=== PATIENT | female | born 1965 | race Caucasian/White ===

== ENCOUNTER → 2016-06-16 | Outpatient (CLI) | payer OTHER ==
[~2016-06-16] MED LIST: BUTA1TAB40 PO; DEXL60CA PO; LEVA15HF2 INH; MECL12.5 PO
== END | disposition home or self-care (01) ==
LOC: CFH 07:30
PROVIDERS: ATTEND Internal Medicine
DX: I08.1 Rheumatic disorders of both mitral and tricuspid valves (principal); I37.1 Nonrheumatic pulmonary valve insufficiency
CPT/HCPCS: 93306

== ENCOUNTER → 2016-06-20 | Outpatient (CLI) | payer OTHER | END | disposition home or self-care (01) | LOC: CFH 15:32 | PROVIDERS: ATTEND Internal Medicine | DX: R22.31 Localized swelling, mass and lump, right upper limb (principal) ==

== ENCOUNTER → 2017-03-08 | Outpatient (CLI) | payer OTHER ==
[~2017-03-08] MED LIST changes: -DEXL60CA PO; +DEXL60CA2 PO; -LEVA15HF2 INH; +LEVA15HF4 INH
== END | disposition home or self-care (01) ==
LOC: CFH 15:30
PROVIDERS: ATTEND Student in an Organized Health Care Education/Training Program
DX: M50.223 Other cervical disc displacement at C6-C7 level (principal)
CPT/HCPCS: 72141

== ENCOUNTER 2019-09-21 10:19 | Emergency (ER) | payer OTHER ==
[~2019-09-21] VITALS: Ht 167.6 cm; Wt 98.2 kg
--- NOTE | 2019-09-21 10:55 | NUR ---
PT AMBULATORY TO ROOM 4 W/ C/O POSTERIOR HEAD VS MARBLE COUNTERTOP. STATES SHE WAS CLEANING THE TOILET AND SHE WENT TO STAND UP AND HIT THE BACK OF HER HEAD AGAINST THE COUNTER. HX TBI 1994. C/O [place]LL "IT'S NOT TOO BAD". DENIES NECK PAIN. NOT ON BLOOD THINNERS. PT DENIES N/V. PT RESTING ON GURNEY. NADN. MONITORS APPLIED.
[2019-09-21 11:57] LABS: BASOPHILS # (AUTO) 0.03 x10^3/uL (0-0.1); BASOPHILS % (AUTO) 1 % (0-1); EOSINOPHILS % (AUTO) 2 % (1-7); LYMPHOCYTES # (AUTO) 1.44 x10^3/uL (1-3.4); LYMPHOCYTES % (AUTO) 28 % (22-44); MD NO; MEAN CORPUSCULAR HEMOGLOBIN 28.9 pg (27.0-34.8); MEAN CORPUSCULAR HGB CONC 32.1 g/dL (32.4-35.8); MEAN CORPUSCULAR VOLUME 90.2 fL (80-100); MEAN PLATELET VOLUME 8.1 fL (7.4-10.4); MONOCYTES # (AUTO) 0.57 x10^3/uL (0.2-0.8); MONOCYTES % (AUTO) 11 % (2-9); NEUTROPHILS % (AUTO) 59 % (42-75); PLATELET COUNT 194 x10^3/uL (130-400); RED BLOOD COUNT 5.16 x10^6/uL (3.82-5.3); RED CELL DISTRIBUTION WIDTH 13.7 % (9.6-15.2)
[2019-09-21 12:08] LABS: ANION GAP 1 mmol/L (5-15); CALCIUM 9.4 mg/dL (8.5-10.1); CHLORIDE 109 mmol/L (98-107)
[2019-09-21 12:11] LABS: ALANINE AMINOTRANSFERASE 30 U/L (12-78); ALKALINE PHOSPHATASE 90 U/L (45-117); BILIRUBIN,TOTAL 0.5 mg/dL (0.2-1.0)
[2019-09-21 12:14] VITALS: BP 152/86
--- NOTE | 2019-09-21 12:14 | NUR ---
PT RESTING ON GURNEY. NADN. PEÑA.
--- NOTE | 2019-09-21 12:21 | NUR ---
PT CHART REVIEWED AND PLACED FOR RECHECK.
== END 2019-09-21 12:45 | disposition home or self-care (01) ==
LOC: ED 12:33
DX: S09.90XA Unspecified injury of head, initial encounter (principal); R19.7 Diarrhea, unspecified; K21.9 Gastro-esophageal reflux disease without esophagitis; I10 Essential (primary) hypertension; G43.909 Migraine, unspecified, not intractable, without status migrainosus; J45.909 Unspecified asthma, uncomplicated; X58.XXXA Exposure to other specified factors, initial encounter; Y93.89 Activity, other specified; Y92.009 Unspecified place in unspecified non-institutional (private) residence as the place of occurrence of the external cause; Y99.8 Other external cause status
CPT/HCPCS: 36415; 70450; 80053; 83690; 85025; 99284

== ENCOUNTER → 2019-10-01 | Outpatient (CLI) | payer OTHER | END | disposition home or self-care (01) | LOC: CFH 12:33 | PROVIDERS: ATTEND Internal Medicine | DX: N63.10 Unspecified lump in the right breast, unspecified quadrant (principal); R92.2 Inconclusive mammogram | CPT/HCPCS: 76642; 77066; G0279 ==

== ENCOUNTER 2020-01-04 15:00 | Emergency (ER) | payer OTHER ==
[~2020-01-04] VITALS: Ht 167.6 cm; Wt 100.2 kg
[2020-01-04 15:07] VITALS: BP 128/82
[2020-01-04] MEDS ORDERED: SODIUM CHLORIDE FLUSH 10ML SYR IVF ONE (15:30)
--- NOTE | 2020-01-04 15:35 | NUR ---
C/O RIGHT LUMB ON NECK SHE NOTICED THIS AM UPON WAKING UP ALSO REPORTS FEELING RIGHT SIDE FACE NUMBNESS, NO FACIAL OR MOUTH DROOP NOTICED BY THIS RN. PLACED MONITORS. ERMD AT BEDSIDE FOR EVAL.
--- NOTE | 2020-01-04 15:46 | NUR ---
PT IN CT.
[2020-01-04 15:52] LABS: BASOPHILS % (AUTO) 1 % (0-1); EOSINOPHILS % (AUTO) 3 % (1-7); LYMPHOCYTES % (AUTO) 33 % (22-44); MEAN CORPUSCULAR HEMOGLOBIN 29.2 pg (27.0-34.8); MEAN CORPUSCULAR HGB CONC 32.8 g/dL (32.4-35.8); MEAN PLATELET VOLUME 8.6 fL (7.4-10.4); MONOCYTES % (AUTO) 10 % (2-9); NEUTROPHILS % (AUTO) 54 % (42-75); PLATELET COUNT 207 x10^3/uL (130-400); RED BLOOD COUNT 5.41 x10^6/uL (3.82-5.3); RED CELL DISTRIBUTION WIDTH 13.6 % (9.6-15.2)
[2020-01-04 15:53] LABS: MD NO
[2020-01-04 16:03] LABS: ALBUMIN 4.4 g/dL (3.4-5.0); ANION GAP 6 mmol/L (5-15); CALCIUM 9.6 mg/dL (8.5-10.1); CHLORIDE 107 mmol/L (98-107)
[2020-01-04 16:08] LABS: ALANINE AMINOTRANSFERASE 37 U/L (12-78); ALKALINE PHOSPHATASE 90 U/L (45-117); BILIRUBIN,TOTAL 0.5 mg/dL (0.2-1.0); CREATININE 0.84 mg/dL (0.55-1.02); TOTAL PROTEIN 7.7 g/dL (6.4-8.2); TROPONIN I < 0.015 ng/mL (0.000-0.045)
[2020-01-04] MEDS ORDERED: DULO30CA2 PO (16:11)
[2020-01-04] MEDS ORDERED: ASPI1TAB21 PO (16:11)
[2020-01-04] MEDS ORDERED: HYOS0.1268 PO (16:11)
--- NOTE | 2020-01-04 16:43 | NUR ---
PT IN CT.
[2020-01-04] MEDS ORDERED: METOCLOPRAMIDE 5 MG/ML, 2ML ONE (16:59)
[2020-01-04] MEDS ORDERED: DIPHENHYDRAMINE 50 MG/ML, 1ML ONE (16:59)
[2020-01-04] MEDS ORDERED: METOCLOPRAMIDE 5 MG/ML, 2ML IVPush ONE (17:00)
[2020-01-04] MEDS ORDERED: SODIUM CHLORIDE 0.9% 1,000ML IVBOLUS ONE (17:00)
[2020-01-04] MEDS ORDERED: DIPHENHYDRAMINE 50 MG/ML, 1ML IV ONE (17:00)
== END 2020-01-04 17:58 | disposition home or self-care (01) ==
LOC: ED 15:56
DX: G43.909 Migraine, unspecified, not intractable, without status migrainosus (principal); I10 Essential (primary) hypertension; K21.9 Gastro-esophageal reflux disease without esophagitis; R07.9 Chest pain, unspecified; R94.31 Abnormal electrocardiogram [ECG] [EKG]; J45.909 Unspecified asthma, uncomplicated
CPT/HCPCS: 36415; 70450; 70551; 71045; 80053; 84484; 85025; 93005; 99285

== ENCOUNTER 2020-07-24 11:55 | Emergency (ER) | payer OTHER ==
[~2020-07-24] VITALS: Ht 167.6 cm; Wt 102.7 kg
[~2020-07-24 11:55] MED LIST changes: +ASPI1TAB21 PO; +DULO30CA2 PO; +HYOS0.1268 PO
[2020-07-24] MEDS ORDERED: SODIUM CHLORIDE FLUSH 10ML SYR IVF ONE (12:30)
[2020-07-24 12:34] LABS: BASOPHILS % (AUTO) 0 % (0-1); EOSINOPHILS % (AUTO) 3 % (1-7); LYMPHOCYTES % (AUTO) 30 % (22-44); MD NO; MEAN CORPUSCULAR HEMOGLOBIN 29.7 pg (27.0-34.8); MEAN CORPUSCULAR HGB CONC 32.7 g/dL (32.4-35.8); MEAN PLATELET VOLUME 8.8 fL (7.4-10.4); MONOCYTES % (AUTO) 11 % (2-9); NEUTROPHILS % (AUTO) 56 % (42-75); PLATELET COUNT 206 x10^3/uL (130-400); RED CELL DISTRIBUTION WIDTH 13.8 % (9.6-15.2)
[2020-07-24 13:00] LABS: ALANINE AMINOTRANSFERASE 46 U/L (12-78); ANION GAP 6 mmol/L (5-15); CALCIUM 9.4 mg/dL (8.5-10.1); CHLORIDE 109 mmol/L (98-107)
[2020-07-24 13:03] LABS: ALKALINE PHOSPHATASE 92 U/L (45-117); BILIRUBIN,TOTAL 0.4 mg/dL (0.2-1.0); CREATININE 0.66 mg/dL (0.55-1.02); TOTAL PROTEIN 6.6 g/dL (6.4-8.2)
--- NOTE | 2020-07-24 13:27 | NUR ---
DIRECTOR OF FINANCIAL REPORTING: PT TO ROOM FROM RE [facility]
--- NOTE | 2020-07-24 13:46 | NUR ---
PIV PLACED. PT PROVIDED URINE SAMPLE. UA COLLECTED AND SENT TO LAB. ERMD AT BEDSIDE FOR ASSESSMENT. PT CONNECTED TO MONITORING. CALL LIGHT IN REACH.
[2020-07-24 13:47] VITALS: BP 139/71
--- NOTE | 2020-07-24 13:49 | NUR ---
CT NOTIFIED THAT PT IS IN ROOM AND PIV PLACED.
[2020-07-24 13:56] LABS: MICROSCOPIC NOT IND
[2020-07-24] MEDS ORDERED: OMNIPAQUE 350 MG/ML, 100ML BOTTLE ONE (14:14)
--- NOTE | 2020-07-24 14:31 | NUR ---
ERMD AT BEDSIDE TO UPDATE PT ON POC.
== END 2020-07-24 15:09 | disposition home or self-care (01) ==
LOC: ED 14:09
DX: R19.7 Diarrhea, unspecified (principal); R10.84 Generalized abdominal pain; R11.0 Nausea; I10 Essential (primary) hypertension; K21.9 Gastro-esophageal reflux disease without esophagitis; J45.909 Unspecified asthma, uncomplicated
CPT/HCPCS: 36415; 74177; 80053; 81003; 83690; 85025; 99285; Q9967